=== PATIENT | male | born 1960 ===

== ENCOUNTER → 2022-01-04 13:55 | Outpatient (BNVA) | payer MEDICAID, SELFPAY | PROVIDERS: PCP Podiatrist Foot & Ankle Surgery; Visit Provider Anesthesiology | DX: M17.12 Unilateral primary osteoarthritis, left knee (principal); M19.012 Primary osteoarthritis, left shoulder; I69.30 Unspecified sequelae of cerebral infarction | CPT/HCPCS: 99202 ==